=== PATIENT | male | born 1960 | race Caucasian/White ===

== ENCOUNTER → 2022-10-31 14:15 | Outpatient (BNVA) | payer MEDICARE, SELFPAY | PROVIDERS: Visit Provider Nurse Practitioner Family | DX: B35.8 Other dermatophytoses (principal) | CPT/HCPCS: 99214 ==

== ENCOUNTER → 2022-12-12 14:17 | Outpatient (BNVA) | payer MEDICARE, SELFPAY | PROVIDERS: PCP Nurse Practitioner Family; Visit Provider Nurse Practitioner Family | DX: B35.8 Other dermatophytoses (principal); L82.0 Inflamed seborrheic keratosis | CPT/HCPCS: 17110; 99214 ==

== ENCOUNTER → 2023-01-12 10:06 | Outpatient (BNVA) | payer MEDICARE, SELFPAY | PROVIDERS: PCP Nurse Practitioner Family; Visit Provider Nurse Practitioner Family | DX: B35.8 Other dermatophytoses (principal); L30.8 Other specified dermatitis; L82.1 Other seborrheic keratosis; L81.4 Other melanin hyperpigmentation | CPT/HCPCS: 99214 ==

== ENCOUNTER → 2023-05-09 13:18 | Outpatient (BNVA) | payer MEDICARE, SELFPAY | PROVIDERS: PCP Nurse Practitioner Family; Visit Provider Nurse Practitioner Family | DX: B35.8 Other dermatophytoses (principal); L57.8 Other skin changes due to chronic exposure to nonionizing radiation; L81.4 Other melanin hyperpigmentation; D22.5 Melanocytic nevi of trunk; L82.1 Other seborrheic keratosis | CPT/HCPCS: 99214 ==

== ENCOUNTER → 2023-06-20 13:24 | Outpatient (BNVA) | payer MEDICARE, SELFPAY | PROVIDERS: PCP Nurse Practitioner Family; Visit Provider Nurse Practitioner Family | DX: B35.8 Other dermatophytoses (principal); L30.4 Erythema intertrigo; D36.11 Benign neoplasm of peripheral nerves and autonomic nervous system of face, head, and neck; L57.8 Other skin changes due to chronic exposure to nonionizing radiation; L81.4 Other melanin hyperpigmentation; D22.5 Melanocytic nevi of trunk; L82.1 Other seborrheic keratosis | CPT/HCPCS: 99214 ==

== ENCOUNTER → 2023-08-28 14:01 | Outpatient (BNVA) | payer MEDICARE, SELFPAY | PROVIDERS: PCP Nurse Practitioner Family; Visit Provider Nurse Practitioner Family | DX: L30.9 Dermatitis, unspecified (principal); L57.0 Actinic keratosis; L57.8 Other skin changes due to chronic exposure to nonionizing radiation; L81.4 Other melanin hyperpigmentation | CPT/HCPCS: 11104; 17000; 99213 ==

== ENCOUNTER → 2023-09-25 14:42 | Outpatient (BNVA) | payer MEDICARE, SELFPAY | PROVIDERS: PCP Nurse Practitioner Family; Visit Provider Nurse Practitioner Family | DX: L23.9 Allergic contact dermatitis, unspecified cause (principal); L26 Exfoliative dermatitis; L02.32 Furuncle of buttock; L02.12 Furuncle of neck; L57.8 Other skin changes due to chronic exposure to nonionizing radiation; L81.4 Other melanin hyperpigmentation | CPT/HCPCS: 99214 ==

== ENCOUNTER → 2023-10-30 11:18 | Outpatient (BNVA) | payer MEDICARE, SELFPAY | PROVIDERS: PCP Nurse Practitioner Family; Visit Provider Nurse Practitioner Family | DX: B35.6 Tinea cruris (principal) | CPT/HCPCS: 99214 ==

== ENCOUNTER → 2024-01-02 13:43 | Outpatient (BNVA) | payer MEDICARE, SELFPAY | PROVIDERS: PCP Nurse Practitioner Family; Visit Provider Nurse Practitioner Family | DX: L23.9 Allergic contact dermatitis, unspecified cause (principal); B35.6 Tinea cruris; L57.8 Other skin changes due to chronic exposure to nonionizing radiation; L81.4 Other melanin hyperpigmentation; F42.4 Excoriation (skin-picking) disorder | CPT/HCPCS: 99214 ==

== ENCOUNTER → 2024-01-30 14:27 | Outpatient (BNVA) | payer MEDICARE, SELFPAY | PROVIDERS: PCP Nurse Practitioner Family; Visit Provider Nurse Practitioner Family | DX: L23.9 Allergic contact dermatitis, unspecified cause (principal); L57.8 Other skin changes due to chronic exposure to nonionizing radiation; L81.4 Other melanin hyperpigmentation; F42.4 Excoriation (skin-picking) disorder; L57.0 Actinic keratosis | CPT/HCPCS: 17000; 99214 ==

== ENCOUNTER → 2024-07-30 14:37 | Outpatient (BNVA) | payer MEDICARE, SELFPAY | PROVIDERS: PCP Nurse Practitioner Family; Visit Provider Nurse Practitioner Family | DX: D36.11 Benign neoplasm of peripheral nerves and autonomic nervous system of face, head, and neck (principal); L57.8 Other skin changes due to chronic exposure to nonionizing radiation; L81.4 Other melanin hyperpigmentation; D22.5 Melanocytic nevi of trunk; L82.1 Other seborrheic keratosis; E88.2 Lipomatosis, not elsewhere classified; L73.9 Follicular disorder, unspecified; L82.0 Inflamed seborrheic keratosis; R20.8 Other disturbances of skin sensation; Z78.9 Other specified health status; L53.8 Other specified erythematous conditions; L29.89 Other pruritus | CPT/HCPCS: 17000; 17110; 99213 ==

== ENCOUNTER → 2025-01-29 14:03 | Outpatient (BNVA) | payer MEDICARE, SELFPAY | PROVIDERS: PCP Nurse Practitioner Family; Visit Provider Nurse Practitioner Family | DX: L20.89 Other atopic dermatitis (principal); L57.8 Other skin changes due to chronic exposure to nonionizing radiation; L81.4 Other melanin hyperpigmentation; L82.1 Other seborrheic keratosis; D22.5 Melanocytic nevi of trunk; L82.0 Inflamed seborrheic keratosis; L53.8 Other specified erythematous conditions; Z78.9 Other specified health status; Z29.89 Encounter for other specified prophylactic measures | CPT/HCPCS: 17110; 99213 ==